=== PATIENT | female | born 1975 | race Caucasian/White ===

== ENCOUNTER 2020-05-27 09:22 | Observation (INO) ==
[2020-05-27] MEDS ORDERED: SODIUM CHLORIDE 0.9% 1000ML 1,000 ML IV ONE (09:47)
[2020-05-27] MEDS ORDERED: KETOROLAC TROMETHAMINE 15 MG/ML VIAL IV STA (09:47)
[2020-05-27 10:01] LABS: POC Urine Bilirubin Negative (Negative); POC Urine Blood 250 (Negative); POC Urine Glucose Normal (Normal); POC Urine Ketones Negative (Negative); POC Urine Leukocytes Trace (Negative); POC Urine Nitrite Negative (Negative); POC Urine Protein 2+ (Negative); POC Urine Urobilinogen Normal (Normal)
--- NOTE | 2020-05-27 10:06 | Emergency Department Note ---
History of Present Illness General Chief complaint: Abdominal Pain Stated complaint: LOWER ABD PAIN Time Seen by Provider: 05/27/20 09:30 Source: patient Mode of arrival: ambulatory Limitations: no limitations History of Present Illness Maximum Pain Intensity: 5 This patient is a 45-year-old female who presents to the emergency department for evaluation of abdominal pain. Patient states that this morning, she dev eloped a sudden onset of left lower quadrant abdominal pain as well as urinary urgency. She was only able to urinate a small amount at a time. She became nauseous, hot and sweaty. She states that the pain is slightly better at this time and she was able to fully urinate after arriving here. She rates his pain a 5/10. She denies any history of similar symptoms. She denies any vomiting or fever. Patient additionally reports that she has had on and off right upper quadrant pain for the past 2 weeks. She states this started after eating a burger. Pain has been exacerbated by eating. Pain is located in the right upper abdomen and radiates into the back. She reports only a minimal twinge of pain in this area at this time. Home Medications Medication Instructions Recorded Confirmed Type levonorgestrel-ethinyl estrad 1 tab PO HS 05/27/20 05/27/20 History [[place] 28] Allergies Allergy/AdvReac Type Severity Reaction Status Date / Time No Known Allergies Allergy Unverified 05/27/20 10:41 Past Med/Surg History Medical History No significant past medical history Surgical History History of adenoidectomy History of section Hx of tonsillectomy Status post right breast lumpectomy Family History Mother Stroke Social History Smoking Status: Former smoker Do You Dip or Chew Tobacco: No; Hx Alcohol Use: Yes Hx Substance Use: No Preferred Language: Yi Communication Ability: Effective Stock Patch Sawyer Required: No Beliefs That Will Affect Care: None Current Living Situation: Spouse Feels Safe at Home: Yes Assistive Devices: Contacts Review of Systems A total of 10 systems reviewed and were otherwise negative Physical Exam Vital Signs Vital Signs - 24 hr 05/27/20 09:27 05/27/20 10:02 05/27/20 11:10 Temperature 37 C Temperature Source Oral Pulse Rate 111 H 119 H Pulse Rate [Apical] 119 H 119 H Pulse Rhythm Regular Regular Pulse Rhythm [Apical] Regular Pulse Strength Normal Pulse Strength [Apical] Normal Respiratory Rate 18 16 18 Respiratory Effort / Characteristics Non-Labored Spontaneous Non-Labored Spontaneous Accessory Muscle Use Respiratory Depth Normal Normal Respiratory Pattern Regular Regular Blood Pressure 174/129 H Blood Pressure [Right Arm] 152/107 H 181/137 H Blood Pressure Mean 144 Blood Pressure Mean [Right Arm] 122 151 Blood Pressure Position Sitting Blood Pressure Position [Right Arm] Semi-fowlers Pulse Oximetry 98 99 96 Oxygen Delivery Method Room Air Room Air Room Air Sepsis Recent Fever Within 48 Hours No Sepsis New/Unexplained Change in Mental Status N/A Sepsis Action Taken by Nursing No Action Required 05/27/20 11:42 05/27/20 13:00 05/27/20 14:40 Temperature Temperature Source Pulse Rate Pulse Rate [Apical] 105 H 114 H 108 H Pulse Rhythm Pulse Rhythm [Apical] Regular Regular Regular Pulse Strength Pulse Strength [Apical] Normal Normal Normal Respiratory Rate 18 17 18 Respiratory Effort / Characteristics Non-Labored Spontaneous Non-Labored Non-Labored Respiratory Depth Normal Normal Normal Respiratory Pattern Regular Regular Blood Pressure Blood Pressure [Right Arm] 149/109 H 150/116 H 155/103 H Blood Pressure Mean Blood Pressure Mean [Right Arm] 122 127 120 Blood Pressure Position Blood Pressure Position [Right Arm] Semi-fowlers Sitting Sitting Pulse Oximetry 99 98 99 Oxygen Delivery Method Room Air Room Air Room Air Sepsis Recent Fever Within 48 Hours Sepsis New/Unexplained Change in Mental Status Sepsis Action Taken by Nursing 05/27/20 16:26 05/27/20 17:57 05/27/20 18:40 Temperature Temperature Source Pulse Rate Pulse Rate [Apical] 108 H 104 H 108 H Pulse Rhythm Pulse Rhythm [Apical] Pulse Strength Pulse Strength [Apical] Respiratory Rate 24 18 17 Respiratory Effort / Characteristics Non-Labored Spontaneous Non-Labored Spontaneous Respiratory Depth Normal Normal Respiratory Pattern Regular Regular Blood Pressure Blood Pressure [Right Arm] 143/104 H 147/110 H 139/107 H Blood Pressure Mean Blood Pressure Mean [Right Arm] 117 122 117 Blood Pressure Position Blood Pressure Position [Right Arm] Pulse Oximetry 99 98 96 Oxygen Delivery Method Room Air Room Air Room Air Sepsis Recent Fever Within 48 Hours Sepsis New/Unexplained Change in Mental Status Sepsis Action Taken by Nursing 05/27/20 20:20 05/27/20 21:07 Temperature Temperature Source Pulse Rate 102 H Pulse Rate [Apical] 106 H Pulse Rhythm Pulse Rhythm [Apical] Pulse Strength Pulse Strength [Apical] Respiratory Rate 18 18 Respiratory Effort / Characteristics Respiratory Depth Respiratory Pattern Blood Pressure 130/99 Blood Pressure [Right Arm] 152/109 H Blood Pressure Mean Blood Pressure Mean [Right Arm] 123 Blood Pressure Position Blood Pressure Position [Right Arm] Pulse Oximetry 97 99 Oxygen Delivery Method Room Air Room Air Sepsis Recent Fever Within 48 Hours Sepsis New/Unexplained Change in Mental Status Sepsis Action Taken by Nursing VITALS: Vitals are noted on the nurse's note and reviewed by myself. GENERAL: This is a 45-year-old female, in no acute distress, well-developed well-nourished. SKIN: The skin was without rashes. EARS: External auditory canals clear, tympanic membranes pearly grant without erythema or effusion bilaterally. EYES: Pupils equal round and reactive to light and accommodation. No scleral icterus. MOUTH: Mucous membranes moist. Tonsils are not enlarged. Pharynx without erythema or exudate. NECK: Supple without nuchal rigidity. No lymphadenopathy. HEART: Regular rate and rhythm without murmurs gallops or rubs. LUNGS: Clear to auscultation bilaterally without wheezes, rales or rhonchi. ABDOMEN: Positive bowel sounds x 4. Soft, moderate tenderness to palpation in the left lower quadrant, mild tenderness in the left upper quadrant. Minimal tenderness in the right upper quadrant. No guarding or rebound tenderness. NEURO: Patient was alert and oriented to person place and time. Course Consultations Consultation #1: Christina Nowak PA-C - general surgery Administered Medications Potassium Chloride 10 meq/ (Sodium Chloride) 1,005 mls @ 100 mls/hr IV .Q10H3M IRVIN Stop: 06/27/20 03:29 Last Admin: 05/28/20 04:41 Dose: 100 mls/hr Documented by: [id number] Cefoxitin Sodium 2,000 mg/ (Dextrose) 60 mls @ 100 mls/hr IV Q6H IRVIN Stop: 06/07/20 03:59 Last Infusion: 05/28/20 04:41 Dose: 0 mls/hr Documented by: [id number] Admin: 05/28/20 04:01 Dose: 100 mls/hr Documented by: [id number] Oxycodone/Acetaminophen (Oxycodone/Acetaminophen 5mg/325mg Tab) 1 tab PO Q4H PRN PRN Reason: Pain Stop: 06/11/20 02:49 Last Admin: 05/28/20 05:16 Dose: 1 tab Documented by: [id number] Discontinued Medications Bupivacaine HCl (Bupivacaine 0.5 % 5 Mg/1 Ml Mpf 30ml Vial) 20 ml INJ ONCE ONE Stop: 05/28/20 00:59 Last Admin: 05/28/20 01:00 Dose: 20 ml Documented by: [id number] Cefazolin Sodium (Cefazolin 250 Mg/Ml 1 Gm Vial) 1,000 mg IR ONCE ONE; Protocol Stop: 05/28/20 00:49 Last Admin: 05/28/20 00:49 Dose: 1,000 mg Documented by: [id number] Fentanyl Citrate (Fentanyl Citrate 100 Mcg/2 Ml Vial) 25 mcg IV Q5M PRN PRN Reason: PACU Use Only-Pain Stop: 05/28/20 04:53 Last Admin: 05/28/20 01:45 Dose: 25 mcg Documented by: [id number] Sodium Chloride (Nss 1000ml) 1,000 mls @ 999 mls/hr IV .Q1H1M ONE Stop: 05/27/20 10:47 Last Infusion: 05/27/20 11:15 Dose: 0 mls/hr Documented by: [id number] Admin: 05/27/20 10:12 Dose: 999 mls/hr Documented by: [id number] Ceftriaxone Sodium (Rocephin) 2,000 mg in 70 mls @ 140 mls/hr IV NOW STA Stop: 05/27/20 12:33 Last Infusion: 05/27/20 12:45 Dose: 0 mls/hr Documented by: [id number] Admin: 05/27/20 12:17 Dose: 140 mls/hr Documented by: [id number] Metronidazole (Flagyl) 500 mg in 100 mls @ 100 mls/hr IV NOW STA Stop: 05/27/20 13:03 Last Infusion: 05/27/20 13:54 Dose: 0 mls/hr Documented by: [id number] Admin: 05/27/20 12:50 Dose: 100 mls/hr Documented by: [id number] Cefoxitin Sodium 2,000 mg/ (Dextrose) 60 mls @ 100 mls/hr IV ONCE ONE Stop: 05/28/20 01:08 Last Infusion: 05/28/20 03:53 Dose: 0 mls/hr Documented by: [id number] Admin: 05/27/20 22:20 Dose: 100 mls/hr Documented by: [id number] Heparin Sodium (Porcine) 5,000 (units/ Syringe) 1 mls @ 1 mls/min IV ONCE ONE Stop: 05/28/20 00:52 Last Admin: 05/28/20 00:53 Dose: 1 mls/min Documented by: [id number] Ketorolac Tromethamine (Ketorolac Tromethamine 15 Mg/Ml Vial) 15 mg IV NOW STA Stop: 05/27/20 09:48 Last Admin: 05/27/20 10:12 Dose: 15 mg Documented by: [id number] Miscellaneous ( Floseal Hemostatic Matrix 10ml) 10 ml TOP ONCE ONE Stop: 05/28/20 00:48 Last Admin: 05/28/20 03:53 Dose: Not Given Documented by: [id number] Medical Decision Making Differential Diagnosis Differential diagnosis includes appendicitis, diverticulitis, bowel obstruction, inflammatory bowel disease, renal colic, PUD, biliary pathology, pancreatitis, mesenteric ischemia, aortic pathology, infection, genitourinary, UTI, perforated viscus, among others. Home Medications Current Medication List: was personally reviewed by me Laboratory Data Attestation: I reviewed the patient's lab results. Result diagrams: 05/27/20 10:01 05/27/20 10:01 Lab Results 05/27/20 05/27/20 05/27/20 Range/Units 09:47 09:47 09:47 WBC (4.8-10.8) K/uL RBC (4.2-5.4) M/uL Hgb (12.0-16.0) g/dL Hct (37-47) % MCV (80-100) fL MCH (25-34) pg MCHC (32-36) g/dL RDW Std Deviation (36.4-46.3) fL RDW Coeff of [place] (11.5-14.5) % Plt Count (130-400) K/uL MPV (7.4-10.4) fL Immature Gran % (Auto) % Neut % (Auto) % Lymph % (Auto) % [place] % (Auto) % Eos % (Auto) % Baso % (Auto) % Neut # (Auto) (1.4-6.5) K/uL Lymph # (Auto) (1.2-3.4) K/uL [place] # (Auto) (0.11-0.59) K/uL Eos # (Auto) (0-0.5) K/uL Baso # (Auto) (0-0.2) K/uL Immature Gran # (Auto) (0.00-0.02) K/uL Sodium (136-145) mmol/L Potassium (3.5-5.1) mmol/L Chloride (98-107) mmol/L Carbon Dioxide (21-32) mmol/L Anion Gap (3-11) BUN (7-18) mg/dl Creatinine (0.6-1.2) mg/dl Est Cr Clr Drug Dosing ml/min Est GFR ( Amer) Est GFR (Non-Af Amer) BUN/Creatinine Ratio (10-20) Glucose (70-99) mg/dl Calcium (8.5-10.1) mg/dl Total Bilirubin (0.2-1) mg/dl AST (15-37) U/L ALT (12-78) U/L Alkaline Phosphatase (45-117) U/L Total Protein (6.4-8.2) gm/dl Albumin (3.4-5.0) gm/dl Globulin (2.5-4.0) gm/dl Albumin/Globulin Ratio (0.9-2) Lipase (73-393) U/L Urine Color Dark Yellow Urine Appearance Cloudy A (Clear) Urine pH 5.0 (4.5-7.5) POC Urine pH Not Reportable Ur Specific [place] 1.022 (1.000-1.030) Urine Protein 1+ H (Negative) POC Urine Protein 2+ H (Negative) Urine Glucose (UA) Negative (Negative) POC Ur Glucose (UA) Normal (Normal) Urine Ketones Trace H (Negative) POC Urine Ketones Negative (Negative) Urine Blood 3+ H (Negative) POC Urine Blood 250 H (Negative) Urine Nitrite Negative (Negative) POC Urine Nitrite Negative (Negative) Urine Bilirubin Negative (Negative) POC Urine Bilirubin Negative (Negative) Urine Urobilinogen Negative (Negative) POC Urine Urobilinogen Normal (Normal) Ur Leukocyte Esterase 2+ H (Negative) POC U Leukocyte Esteras Trace H (Negative) Urine WBC (Auto) 10-30 H (0-5) /hpf Urine RBC (Auto) >30 H (0-4) /hpf U Hyaline Cast (Auto) 1-5 (0-5) /lpf U Epithel Cells (Auto) >30 H (0-5) /lpf Urine Bacteria (Auto) Negative (Negative) Urine Test Negative (Negative) COVID-19 Eval Order SARS-CoV-2, RNA, NAAT (NEGATIVE) 05/27/20 05/27/20 05/27/20 Range/Units 10:01 10:01 15:38 WBC 6.42 (4.8-10.8) K/uL RBC 4.36 (4.2-5.4) M/uL Hgb 14.4 (12.0-16.0) g/dL Hct 40.9 (37-47) % MCV 93.8 (80-100) fL MCH 33.0 (25-34) pg MCHC 35.2 (32-36) g/dL RDW Std Deviation 42.7 (36.4-46.3) fL RDW Coeff of [place] 12.4 (11.5-14.5) % Plt Count 301 (130-400) K/uL MPV 10.0 (7.4-10.4) fL Immature Gran % (Auto) 0.2 % Neut % (Auto) 71.4 % Lymph % (Auto) 18.7 % [place] % (Auto) 8.3 % Eos % (Auto) 1.2 % Baso % (Auto) 0.2 % Neut # (Auto) 4.59 (1.4-6.5) K/uL Lymph # (Auto) 1.20 (1.2-3.4) K/uL [place] # (Auto) 0.53 (0.11-0.59) K/uL Eos # (Auto) 0.08 (0-0.5) K/uL Baso # (Auto) 0.01 (0-0.2) K/uL Immature Gran # (Auto) 0.01 (0.00-0.02) K/uL Sodium 139 (136-145) mmol/L Potassium 3.7 (3.5-5.1) mmol/L Chloride 108 H (98-107) mmol/L Carbon Dioxide 24 (21-32) mmol/L Anion Gap 7.0 (3-11) BUN 15 (7-18) mg/dl Creatinine 0.79 (0.6-1.2) mg/dl Est Cr Clr Drug Dosing 131.1 ml/min Est GFR ( Amer) 105.5 Est GFR (Non-Af Amer) 91.0 BUN/Creatinine Ratio 19.4 (10-20) Glucose 101 H (70-99) mg/dl Calcium 9.0 (8.5-10.1) mg/dl Total Bilirubin 0.6 (0.2-1) mg/dl AST 14 L (15-37) U/L ALT 28 (12-78) U/L Alkaline Phosphatase 94 (45-117) U/L Total Protein 7.9 (6.4-8.2) gm/dl Albumin 3.9 (3.4-5.0) gm/dl Globulin 4.0 (2.5-4.0) gm/dl Albumin/Globulin Ratio 1.0 (0.9-2) Lipase 89 (73-393) U/L Urine Color Urine Appearance (Clear) Urine pH (4.5-7.5) POC Urine pH Ur Specific [place] (1.000-1.030) Urine Protein (Negative) POC Urine Protein (Negative) Urine Glucose (UA) (Negative) POC Ur Glucose (UA) (Normal) Urine Ketones (Negative) POC Urine Ketones (Negative) Urine Blood (Negative) POC Urine Blood (Negative) Urine Nitrite (Negative) POC Urine Nitrite (Negative) Urine Bilirubin (Negative) POC Urine Bilirubin (Negative) Urine Urobilinogen (Negative) POC Urine Urobilinogen (Normal) Ur Leukocyte Esterase (Negative) POC U Leukocyte Esteras (Negative) Urine WBC (Auto) (0-5) /hpf Urine RBC (Auto) (0-4) /hpf U Hyaline Cast (Auto) (0-5) /lpf U Epithel Cells (Auto) (0-5) /lpf Urine Bacteria (Auto) (Negative) Urine Test (Negative) COVID-19 Eval [facility] [place] SARS-CoV-2, RNA, NAAT (NEGATIVE) 05/27/20 Range/Units 15:38 WBC (4.8-10.8) K/uL RBC (4.2-5.4) M/uL Hgb (12.0-16.0) g/dL Hct (37-47) % MCV (80-100) fL MCH (25-34) pg MCHC (32-36) g/dL RDW Std Deviation (36.4-46.3) fL RDW Coeff of Maril[place] (11.5-14.5) % Plt Count (130-400) K/uL MPV (7.4-10.4) fL Immature Gran % (Auto) % Neut % (Auto) % Lymph % (Auto) % [place] % (Auto) % Eos % (Auto) % Baso % (Auto) % Neut # (Auto) (1.4-6.5) K/uL Lymph # (Auto) (1.2-3.4) K/uL [place] # (Auto) (0.11-0.59) K/uL Eos # (Auto) (0-0.5) K/uL Baso # (Auto) (0-0.2) K/uL Immature Gran # (Auto) (0.00-0.02) K/uL Sodium (136-145) mmol/L Potassium (3.5-5.1) mmol/L Chloride (98-107) mmol/L Carbon Dioxide (21-32) mmol/L Anion Gap (3-11) BUN (7-18) mg/dl Creatinine (0.6-1.2) mg/dl Est Cr Clr Drug Dosing ml/min Est GFR ( Amer) Est GFR (Non-Af Amer) BUN/Creatinine Ratio (10-20) Glucose (70-99) mg/dl Calcium (8.5-10.1) mg/dl Total Bilirubin (0.2-1) mg/dl AST (15-37) U/L ALT (12-78) U/L Alkaline Phosphatase (45-117) U/L Total Protein (6.4-8.2) gm/dl Albumin (3.4-5.0) gm/dl Globulin (2.5-4.0) gm/dl Albumin/Globulin Ratio (0.9-2) Lipase (73-393) U/L Urine Color Urine Appearance (Clear) Urine pH (4.5-7.5) POC Urine pH Ur Specific [place] (1.000-1.030) Urine Protein (Negative) POC Urine Protein (Negative) Urine Glucose (UA) (Negative) POC Ur Glucose (UA) (Normal) Urine Ketones (Negative) POC Urine Ketones (Negative) Urine Blood (Negative) POC Urine Blood (Negative) Urine Nitrite (Negative) POC Urine Nitrite (Negative) Urine Bilirubin (Negative) POC Urine Bilirubin (Negative) Urine Urobilinogen (Negative) POC Urine Urobilinogen (Normal) Ur Leukocyte Esterase (Negative) POC U Leukocyte Esteras (Negative) Urine WBC (Auto) (0-5) /hpf Urine RBC (Auto) (0-4) /hpf U Hyaline Cast (Auto) (0-5) /lpf U Epithel Cells (Auto) (0-5) /lpf Urine Bacteria (Auto) (Negative) Urine Test (Negative) COVID-19 Eval Order SARS-CoV-2, RNA, NAAT NEGATIVE (NEGATIVE) Imaging Data Attestation: I personally reviewed and interpreted this imaging study as follows: Radiologist's Impression: CT SCAN OF THE ABDOMEN AND PELVIS WITHOUT IV CONTRAST FINDINGS: Lung bases: The heart is normal in size and without pericardial effusion. The lung bases are clear. Liver: The unenhanced liver is mildly enlarged measuring 18.8 cm in length. The liver demonstrates diffusely diminished attenuation consistent with mild steatosis. Fatty sparing is seen adjacent to gallbladder fossa. There is no intrahepatic biliary ductal dilatation. Gallbladder: There are large calcified gallstones, with a 2.7 cm gallstone in the region of the gallbladder neck. The gallbladder is distended. There is mild gallbladder wall thickening and pericholecystic inflammation. Findings are consi stent with acute cholecystitis. Spleen: Normal in size and attenuation. Pancreas: Unremarkable. Adrenal glands: Unremarkable. Kidneys: The unenhanced kidneys are normal in size and without hydronephrosis. There is a 3 mm nonobstructing calculus in the lower pole of the left kidney. No right renal calculi are identified and there is no ureteral stone. There is no evidence of contour deforming renal mass lesion. Abdominal vasculature: The abdominal aorta is normal in course and caliber. Bowel: There is no bowel obstruction. Scattered colonic diverticula are noted without CT evidence of acute diverticulitis. The appendix is well-visualized and normal. Peritoneum: There is no intraperitoneal free air or abdominal ascites. Lymphadenopathy: None. Pelvic viscera: The bladder, uterus, and adnexa are normal as visualized noting bilateral ovarian follicles. Skeletal structures: No lytic or blastic lesions are seen. IMPRESSION: 1. Cholelithiasis with acute cholecystitis. Surgical consultation is advised. 2. There is a small nonobstructing left renal calculus. 3. The liver is mildly enlarged and steatotic. 4. Additional findings as above. 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 Patient was placed on the ca rdiac monitor. Patient was noted to be in sinus tachycardia at an initial rate of 111 bpm. The patient is a 45-year-old female who presents today complaining of abdominal pain. Patient has been having right upper quadrant abdominal pain for the past 2 weeks. This morning, she had a sudden onset of left lower quadrant abdominal pain as well as some urinary symptoms. I suspect that this was due to a recently passed kidney stone, as patient does have an additional left renal calculus and has hematuria. The symptoms resolved during her stay. However, her CT also showed evidence of acute cholecystitis. Her labs reveal no leukocytosis, anemia or concerning electrolyte abnormalities. LFTs within normal limits. No elevation of the patient's lipase. She was tachycardic throughout her stay, although I suspect this is in part due to anxiety as she admits she is very anxious about her symptoms and possibly needing surgery. Patient was given IV fluids and Toradol. Patient given IV Rocephin and Flagyl in the ER. General surgery was consulted to evaluate the patient. Impression & Plan Acute cholecystitis, Hematuria, Left lower quadrant abdominal pain Discharge Plan Visit Data Chief Complaint: Abdominal Pain Stated Complaint: LOWER ABD PAIN ED Provider: Daryl Perez ED Midlevel Provider: Geri Ramirez Discharge Problem: Acute cholecystitis, Hematuria, Left lower quadrant abdominal pain Patient Disposition: Admitted As Inpatient Discharge Instructions Interventions: ED Discharge Assessment Last Done: 05/27/20 21:07 Discharge Problem: Hematuria Qualifiers: Hematuria type: unspecified type Qualified Code(s): R31.9 - Hematuria, unspecified
[2020-05-27 10:14] LABS: Appearance Urine Cloudy (Clear); Bacteria Urine Automated Negative (Negative); Bilirubin Urine Negative (Negative); Blood Urine 3+ (Negative); Color Urine Dark Yellow; Epithelial Cell Urine Auto >30 /lpf (0-5); Glucose Urine UA Negative (Negative); Ketones Urine Trace (Negative); Leukocyte Esterase Urine 2+ (Negative); Nitrite Urine Negative (Negative); Protein Urine 1+ (Negative); RBC Urine Automated >30 /hpf (0-4); Specific Gravity Urine 1.022 (1.000-1.030); Urobilinogen Urine Negative (Negative)
[2020-05-27 10:19] LABS: Basophils # (auto) 0.01 K/uL (0-0.2); Basophils % (auto) 0.2 %; Eosinophils # (auto) 0.08 K/uL (0-0.5); Eosinophils % (auto) 1.2 %; Hematocrit (blood only) 40.9 % (37-47); Hemoglobin 14.4 g/dL (12.0-16.0); Immature Granulocytes # (auto) 0.01 K/uL (0.00-0.02); Immature Granulocytes % (auto) 0.2 %; Lymphocytes % (auto) 18.7 %; Mean Corpuscular Hgb Conc 35.2 g/dL (32-36); Mean Corpuscular Volume 93.8 fL (80-100); Monocytes # (auto) 0.53 K/uL (0.11-0.59); Monocytes % (auto) 8.3 %; Neutrophils # (auto) 4.59 K/uL (1.4-6.5); Neutrophils % (auto) 71.4 %; Platelet Count 301 K/uL (130-400); RDW Coefficient of Variation 12.4 % (11.5-14.5); RDW Standard Deviation 42.7 fL (36.4-46.3); Red Blood Count 4.36 M/uL (4.2-5.4); White Blood Count 6.42 K/uL (4.8-10.8)
[2020-05-27 10:28] LABS: Pregnancy Test, Urine Negative (Negative)
[2020-05-27 10:36] LABS: Albumin Level 3.9 gm/dl (3.4-5.0); BUN Creatinine Ratio 19.4 (10-20); Creatinine Clr Calc Pharmacy 131.1 ml/min; Est GFR (African American) 105.5; Potassium 3.7 mmol/L (3.5-5.1)
[2020-05-27 10:39] LABS: Bilirubin,Total 0.6 mg/dl (0.2-1); Total Protein 7.9 gm/dl (6.4-8.2)
--- NOTE | 2020-05-27 10:50 | CT Scan Report ---
CT SCAN OF THE ABDOMEN AND PELVIS WITHOUT IV CONTRAST CLINICAL HISTORY: Left lower quadrant abdominal pain. Dysuria. Right upper quadrant abdominal pain. COMPARISON STUDY: No priors. TECHNIQUE: CT scan of the abdomen and pelvis is performed from the lung bases to the proximal femora. Images are reviewed in the axial, sagittal, and coronal planes. IV contrast was not administered for this examination. A dose lowering technique was utilized adhering to the principles of ALARA. The ex amination is degraded by large body habitus, and by streak artifact from the body wall abutting the C T gantry. CT DOSE: 2183.07 mGy.cm FINDINGS: Lung bases: The heart is normal in size and without pericardial effusion. The lung bases are clear. Liver: The unenhanced liver is mildly enlarged measuring 18.8 cm in length. The liver demonstrates di ffusely diminished attenuation consistent with mild steatosis. Fatty sparing is seen adjacent to gall bladder fossa. There is no intrahepatic biliary ductal dilatation. Gallbladder: There are large calcified gallstones, with a 2.7 cm gallstone in the region of the gallb ladder neck. The gallbladder is distended. There is mild gallbladder wall thickening and pericholecys tic inflammation. Findings are consistent with acute cholecystitis. Spleen: Normal in size and attenuation. Pancreas: Unremarkable. Adrenal glands: Unremarkable. Kidneys: The unenhanced kidneys are normal in size and without hydronephrosis. There is a 3 mm nonobs tructing calculus in the lower pole of the left kidney. No right renal calculi are identified and the re is no ureteral stone. There is no evidence of contour deforming renal mass lesion. Abdominal vasculature: The abdominal aorta is normal in course and caliber. Bowel: There is no bowel obstruction. Scattered colonic diverticula are noted without CT evidence of acute diverticulitis. The appendix is well-visualized and normal. Peritoneum: There is no intraperitoneal free air or abdominal ascites. Lymphadenopathy: None. Pelvic viscera: The bladder, uterus, and adnexa are normal as visualized noting bilateral ovarian fol licles. Skeletal structures: No lytic or blastic lesions are seen. IMPRESSION: 1. Cholelithiasis with acute cholecystitis. Surgical consultation is advised. 2. There is a small nonobstructing left renal calculus. 3. The liver is mildly enlarged and steatotic. 4. Additional findings as above. ACT 112: Negative or not required by law. Electronically signed by: Froilan Hoover M.D. 05/27/2020 10:49 AM
[2020-05-27] MEDS ORDERED: metroNIDAZOLE 500 MG/100 ML BAG IV STA (12:04)
[2020-05-27] MEDS ORDERED: cefTRIAXone SODIUM 2,000 MG/70 ML BAG IV STA (12:04)
--- NOTE | 2020-05-27 13:54 | Electrocardiogram Report ---
Test Reason : Blood Pressure : / mmHG Vent. Rate : 114 BPM Atrial Rate : 114 BPM P-R Int : 130 ms QRS Dur : 074 ms QT Int : 330 ms P-R-T Axes : 039 007 -05 degrees QTc Int : 454 ms Sinus tachycardia Normal ECG No previous ECGs available Confirmed by Rahul Sosa ([id number]) on 05/27/2020 1:54:04 PM Referred By: REFERRED SELF Confirmed By:Rahul Sosa
--- NOTE | 2020-05-27 16:03 | History & Physical Report ---
Date of Service May 27, 2020 Assessment & Plan (1) Acute cholecystitis: 45-year-old female who presented to the emergency room with left lower quadrant abdominal pain and urinary urgency found to have right upper quadrant abdominal pain for the past [address] scan of abdomen pelvis showing distended gallbladder with large 2.7 centimeters stone in the neck of the gallbladder with gallbladder wall thickening and surrounding inflammation consistent with acute cholecystitis. Labs showed no leukocytosis, afebrile. Abdomen is soft, obese, tender in the right upper quadrant with positive Shaffer sign. Plan: Discussed CT scan findings with patient and examination findings consistent with acute calculus cholecystitis. Discussed laparoscopic cholecystectomy possible open. Discussed risks and recovery with patient. Depending on OR availability patient may go to the OR this evening or tomorrow morning. Preop Covid testing This OR tomorrow patient will be admitted under observation to [facility] and started on IV antibiotics and pain control. Diet n.p.o. (2) Left lower quadrant abdominal pain: Patient presented to the ED with this left lower quadrant pain however this resolved after she was able to urinate. Likely passed a small kidney stone. (3) Hematuria: Likely due to passing a small kidney stone. Dr. Hodgson has seen and examined patient agrees with above please see ad dendum for further recommendations and plan. History of Present Illness Chief Complaint: LLQ abdominal pain RUQ abdominal pain Primary Care Provider: [facility] PCP Lily is a 45-year-old female who presented to the emergency room this morning with complaint of left lower quadrant abdominal pain that started this morning suddenly. Described the pain as sharp and stabbing in the left lower quadrant with urinary urgency but was unable to urinate. She presented to the emergency room and was able to urinate and then the pain in the left lower quadrant subsided. She also stated that she has been having this right upper quadrant abdominal pain. Had an episode about 1 and half weeks ago after eating a burger in which she had sharp right upper abdominal pain with radiation to her back for a few hours and then resolved she had associated nausea but no vomiting. She then had another episode this past Tuesday after eating but was not as bad as the first episode. Some mild gnawing pain that has been persistent in the right upper quadrant. Denies of any fevers, chills, chest pain, shortness of breath, diarrhea, blood in stools, black tarry stools, jaundice, generalized itching, acholic stools. She was unaware that she had gallstones. She states her mother had gallstones and had her gallbladder removed around the same age. Denies of any history of blood clots or bleeding disorders. No blood thinning agents. ER work-up included labs which showed no leukocytosis. CMP with LFTs and total bilirubin within normal limits. CT scan of abdomen and pelvis without contrast showing distended gallbladder with a large two-point centimeter stone in the neck of the gallbladder with some mild gallbladder wall thickening and surrounding inflammation consistent with acute cholecystitis. Allergies Allergy/AdvReac Type Severity Reaction Status Date / Time No Known Allergies Allergy Unverified 05/27/20 10:41 Home Medications Medication Instructions Recorded Confirmed Type levonorgestrel-ethinyl estrad 1 tab PO HS 05/27/20 05/27/20 History [[place] 28] Past Med/Surg History Medical History (Updated 05/27/20 @ 15:26 by Geri Ramirez PA-C) No significant past medical history Surgical History (Updated 05/27/20 @ 16:04 by Christina Nowak PA-C) History of adenoidectomy History of section Hx of tonsillectomy Status post right breast lumpectomy Family History (Updated 05/27/20 @ 16:05 by Christina Nowak PA-C) Mother Stroke Social History Smoking Status: Never smoker Feels Safe at Home: Yes Review of Systems Review of Systems: All systems reviewed & are unremarkable except as noted in HPI & below Physical Exam Constitutional: WD/WN, vitals as above + morbidly obese Respiratory: normal respiratory effort, lungs clear to auscultation Cardiovascular: Rate/Rhythm: regular rhythm and + tachycardic Heart Sounds: normal S1 and normal S2; no gallop, no murmur and no cardiac rub Gastrointestinal (Abdomen): Inspection/Auscultation: abdomen normal to inspection and normal bowel sounds; abdomen not distended Percussio n/Palpation: + abdomen tender (Right upper quadrant), + guarding (Right upper quadrant, positive Shaffer sign) and abdomen soft; abdomen not rigid Skin: no rashes, warm and dry Psychiatric: A+Ox3, euthymic affect Results & Data Results & Data ([facility]) Vital Signs (Past 12 Hours) Vital Signs Temp Pulse Pulse Resp BP BP Pulse Ox 05/27/20 14:40 108 H 18 155/103 H 99 05/27/20 13:00 114 H 17 150/116 H 98 05/27/20 11:42 105 H 18 149/109 H 99 05/27/20 11:10 119 H 18 181/137 H 96 05/27/20 10:02 119 H 119 H 16 152/107 H 99 05/27/20 09:27 37 C 111 H 18 174/129 H 98 Laboratory Results 05/27/20 05/27/20 05/27/20 Range/Units 15:38 15:38 10:01 WBC (4.8-10.8) K/uL RBC (4.2-5.4) M/uL Hgb (12.0-16.0) g/dL Hct (37-47) % MCV (80-100) fL MCH (25-34) pg MCHC (32-36) g/dL RDW Std Deviation (36.4-46.3) fL RDW Coeff of Mariluz (11.5-14.5) % Plt Count (130-400) K/uL MPV (7.4-10.4) fL Immature Gran % (Auto) % Neut % (Auto) % Lymph % (Auto) % [place] % (Auto) % Eos % (Auto) % Baso % (Auto) % Neut # (Auto) (1.4-6.5) K/uL Lymph # (Auto) (1.2-3.4) K/uL [place] # (Auto) (0.11-0.59) K/uL Eos # (Auto) (0-0.5) K/uL Baso # (Auto) (0-0.2) K/uL Immature Gran # (Auto) (0.00-0.02) K/uL Sodium 139 (136-145) mmol/L Potassium 3.7 (3.5-5.1) mmol/L Chloride 108 H (98-107) mmol/L Carbon Dioxide 24 (21-32) mmol/L Anion Gap 7.0 (3-11) BUN 15 (7-18) mg/dl Creatinine 0.79 (0.6-1.2) mg/dl Est Cr Clr Drug Dosing 131.1 ml/min Est GFR ( Amer) 105.5 Est GFR (Non-Af Amer) 91.0 BUN/Creatinine Ratio 19.4 (10-20) Glucose 101 H (70-99) mg/dl Calcium 9.0 (8.5-10.1) mg/dl Total Bilirubin 0.6 (0.2-1) mg/dl AST 14 L (15-37) U/L ALT 28 (12-78) U/L Alkaline Phosphatase 94 (45-117) U/L Total Protein 7.9 (6.4-8.2) gm/dl Albumin 3.9 (3.4-5.0) gm/dl Globulin 4.0 (2.5-4.0) gm/dl Albumin/Globulin Ratio 1.0 (0.9-2) Lipase 89 (73-393) U/L Urine Color Urine Appearance (Clear) Urine pH (4.5-7.5) POC Urine pH Ur Specific [place] (1.000-1.030) Urine Protein (Negative) POC Urine Protein (Negative) Urine Glucose (UA) (Negative) POC Ur Glucose (UA) (Normal) Urine Ketones (Negative) POC Urine Ketones (Negative) Urine Blood (Negative) POC Urine Blood (Negative) Urine Nitrite (Negative) POC Urine Nitrite (Negative) Urine Bilirubin (Negative) POC Urine Bilirubin (Negative) Urine Urobilinogen (Negative) POC Urine Urobilinogen (Normal) Ur Leukocyte Esterase (Negative) POC U Leukocyte Esteras (Negative) Urine WBC (Auto) (0-5) /hpf Urine RBC (Auto) (0-4) /hpf U Hyaline Cast (Auto) (0-5) /lpf U Epithel Cells (Auto) (0-5) /lpf Urine Bacteria (Auto) (Negative) Urine Test (Negative) COVID-19 Eval Order Covid19 IDNow [facility] SARS-CoV-2, RNA, NAAT Pending 05/27/20 05/27/20 05/27/20 Range/Units 10:01 09:47 09:47 WBC 6.42 (4.8-10.8) K/uL RBC 4.36 (4.2-5.4) M/uL Hgb 14.4 (12.0-16.0) g/dL Hct 40.9 (37-47) % MCV 93.8 (80-100) fL MCH 33.0 (25-34) pg MCHC 35.2 (32-36) g/dL RDW Std Deviation 42.7 (36.4-46.3) fL RDW Coeff of Mariluz 12.4 (11.5-14.5) % Plt Count 301 (130-400) K/uL MPV 10.0 (7.4-10.4) fL Immature Gran % (Auto) 0.2 % Neut % (Auto) 71.4 % Lymph % (Auto) 18.7 % [place] % (Auto) 8.3 % Eos % (Auto) 1.2 % Baso % (Auto) 0.2 % Neut # (Auto) 4.59 (1.4-6.5) K/uL Lymph # (Auto) 1.20 (1.2-3.4) K/uL [place] # (Auto) 0.53 (0.11-0.59) K/uL Eos # (Auto) 0.08 (0-0.5) K/uL Baso # (Auto) 0.01 (0-0.2) K/uL Immature Gran # (Auto) 0.01 (0.00-0.02) K/uL Sodium (136-145) mmol/L Potassium (3.5-5.1) mmol/L Chloride (98-107) mmol/L Carbon Dioxide (21-32) mmol/L Anion Gap (3-11) BUN (7-18) mg/dl Creatinine (0.6-1.2) mg/dl Est Cr Clr Drug Dosing ml/min Est GFR ( Amer) Est GFR (Non-Af Amer) BUN/Creatinine Ratio (10-20) Glucose (70-99) mg/dl Calcium (8.5-10.1) mg/dl Total Bilirubin (0.2-1) mg/dl AST (15-37) U/L ALT (12-78) U/L Alkaline Phosphatase (45-117) U/L Total Protein (6.4-8.2) gm/dl Albumin (3.4-5.0) gm/dl Globulin (2.5-4.0) gm/dl Albumin/Globulin Ratio (0.9-2) Lipase (73-393) U/L Urine Color Urine Appearance (Clear) Urine pH (4.5-7.5) POC Urine pH Not Reportable Ur Specific [place] (1.000-1.030) Urine Protein (Negative) POC Urine Protein 2+ H (Negative) Urine Glucose (UA) (Negative) POC Ur Glucose (UA) Normal (Normal) Urine Ketones (Negative) POC Urine Ketones Negative (Negative) Urine Blood (Negative) POC Urine Blood 250 H (Negative) Urine Nitrite (Negative) POC Urine Nitrite Negative (Negative) Urine Bilirubin (Negative) POC Urine Bilirubin Negative (Negative) Urine Urobilinogen (Negative) POC Urine Urobilinogen Normal (Normal) Ur Leukocyte Esterase (Negative) POC U Leukocyte Esteras Trace H (Negative) Urine WBC (Auto) (0-5) /hpf Urine RBC (Auto) (0-4) /hpf U Hyaline Cast (Auto) (0-5) /lpf U Epithel Cells (Auto) (0-5) /lpf Urine Bacteria (Auto) (Negative) Urine Test Negative (Negative) COVID-19 Eval Order SARS-CoV-2, RNA, NAAT 05/27/20 Range/Units 09:47 WBC (4.8-10.8) K/uL RBC (4.2-5.4) M/uL Hgb (12.0-16.0) g/dL Hct (37-47) % MCV (80-100) fL MCH (25-34) pg MCHC (32-36) g/dL RDW Std Deviation (36.4-46.3) fL RDW Coeff of Mariluz (11.5-14.5) % Plt Count (130-400) K/uL MPV (7.4-10.4) fL Immature Gran % (Auto) % Neut % (Auto) % Lymph % (Auto) % [place] % (Auto) % Eos % (Auto) % Baso % (Auto) % Neut # (Auto) (1.4-6.5) K/uL Lymph # (Auto) (1.2-3.4) K/uL [place] # (Auto) (0.11-0.59) K/uL Eos # (Auto) (0-0.5) K/uL Baso # (Auto) (0-0.2) K/uL Immature Gran # (Auto) (0.00-0.02) K/uL Sodium (136-145) mmol/L Potassium (3.5-5.1) mmol/L Chloride (98-107) mmol/L Carbon Dioxide (21-32) mmol/L Anion Gap (3-11) BUN (7-18) mg/dl Creatinine (0.6-1.2) mg/dl Est Cr Clr Drug Dosing ml/min Est GFR ( Amer) Est GFR (Non-Af Amer) BUN/Creatinine Ratio (10-20) Glucose (70-99) mg/dl Calcium (8.5-10.1) mg/dl Total Bilirubin (0.2-1) mg/dl AST (15-37) U/L ALT (12-78) U/L Alkaline Phosphatase (45-117) U/L Total Protein (6.4-8.2) gm/dl Albumin (3.4-5.0) gm/dl Globulin (2.5-4.0) gm/dl Albumin/Globulin Ratio (0.9-2) Lipase (73-393) U/L Urine Color Dark Yellow Urine Appearance Cloudy A (Clear) Urine pH 5.0 (4.5-7.5) POC Urine pH Ur Specific [place] 1.022 (1.000-1.030) Urine Protein 1+ H (Negative) POC Urine Protein (Negative) Urine Glucose (UA) Negative (Negative) POC Ur Glucose (UA) (Normal) Urine Ketones Trace H (Negative) POC Urine Ketones (Negative) Urine Blood 3+ H (Negative) POC Urine Blood (Negative) Urine Nitrite Negative (Negative) POC Urine Nitrite (Negative) Urine Bilirubin Negative (Negative) POC Urine Bilirubin (Negative) Urine Urobilinogen Negative (Negative) POC Urine Urobilinogen (Normal) Ur Leukocyte Esterase 2+ H (Negative) POC U Leukocyte Esteras (Negative) Urine WBC (Auto) 10-30 H (0-5) /hpf Urine RBC (Auto) >30 H (0-4) /hpf U Hyaline Cast (Auto) 1-5 (0-5) /lpf U Epithel Cells (Auto) >30 H (0-5) /lpf Urine Bacteria (Auto) Negative (Negative) Urine Test (Negative) COVID-19 Eval Order SARS-CoV-2, RNA, NAAT Diagnostic Findings CT SCAN OF THE ABDOMEN AND PELVIS WITHOUT IV CONTRAST CLINICAL HISTORY: Left lower quadrant abdominal pain. Dysuria. Right upper quadrant abdominal pain. COMPARISON STUDY: No priors. TECHNIQUE: CT scan of the abdomen and pelvis is performed from the lung bases to the proximal femora. Images are reviewed in the axial, sagittal, and coronal planes. IV contrast was not administered for this examination. A dose lowering technique was utilized adhering to the principles of ALARA. The examination is degraded by large body habitus, and by streak artifact from the body wall abutting the CT gantry. CT DOSE: 2183.07 mGy.cm FINDINGS: Lung bases: The heart is normal in size and without pericardial effusion. The lung bases are clear. Liver: The unenhanced liver is mildly enlarged measuring 18.8 cm in length. The liver demonstrates diffusely diminished attenuation consistent with mild steatosis. Fatty sparing is seen adjacent to gallbladder fossa. There is no intrahepatic biliary ductal dilatation. Gallbladder: There are large calcified gallstones, with a 2.7 cm gallstone in the region of the gallbladder neck. The gallbladder is distended. There is mild gallbladder wall thickening and pericholecystic inflammation. Findings are consistent with acute cholecystitis. Spleen: Normal in size and attenuation. Pancreas: Unremarkable. Adrenal glands: Unremarkable. Kidneys: The unenhanced kidneys are normal in size and without hydronephrosis. There is a 3 mm nonobstructing calculus in the lower pole of the left kidney. No right renal calculi are identified and there is no ureteral stone. There is no evidence of contour deforming renal mass lesion. Abdominal vasculature: The abdominal aorta is normal in course and caliber. Bowel: There is no bowel obstruction. Scattered colonic diverticula are noted without CT evidence of acute diverticulitis. The appendix is well-visualized and normal. Peritoneum: There is no intraperitoneal free air or abdominal ascites. Lymphadenopathy: None. Pelvic viscera: The bladder, uterus, and adnexa are normal as visualized noting bilateral ovarian follicles. Skeletal structures: No lytic or blastic lesions are seen. IMPRESSION: 1. Cholelithiasis with acute cholecystitis. Surgical consultation is advised. 2. There is a small nonobstructing left renal calculus. 3. The liver is mildly enlarged and steatotic. 4. Additional findings as above. Code Status & VTE Plan VTE Prophylaxis Plan VTE Prophylaxis will be ordered: Yes Supervising Physician Co-Signing Physician Notes I interviewed and examined this patient I agree with the above note. Her CAT scan shows a dilated appendix with cholelithiasis and some evidence of acute cholecystitis. Her right upper quadrant is tender. I recommended laparoscopic cholecystectomy. I explained the procedure and the possible need to convert to an open procedure. I explained some of the possible complications and answered her questions. She has signed a consent form. (1) Hematuria Hematuria type: unspecified type Qualified Code(s): R31.9 - Hematuria, unspecified
[2020-05-27] MEDS ORDERED: ONDANSETRON INJ 2 MG/ML 2 ML VIAL IV PRN (20:53)
[2020-05-27] MEDS ORDERED: ePHEDrine sulfate 50 MG/ML AMP IV PRN (20:53)
[2020-05-27] MEDS ORDERED: ATROPINE SULFATE 0.1 MG/ML 10ML SYR IV PRN (20:53)
[2020-05-27] MEDS ORDERED: fentaNYL citrate 100 MCG/2 ML VIAL IV PRN (20:53)
[2020-05-27] MEDS ORDERED: HYDROmorphone INJ 1 MG/ML SYRINGE IV PRN (20:53)
--- NOTE | 2020-05-27 20:55 | Anesthesiology Consultation ---
Date of Service May 27, 2020 Assessment & Plan (1) Encounter for pre-operative examination: Chart Review Chart Review: Acceptable Risk for Surgery and Patient NOT seen in Pre Admission Testing Consults Requested none History Surgery Operation Date: 05/27/20 13:40 Proposed Procedures p Laparoscopic Cholecystectomy - Kendell Hodgson MD Height/Weight Height: 5 ft 7 in Weight: 136 kg Allergies Allergy/AdvReac Type Severity Reaction Status Date / Time No Known Allergies Allergy Unverified 05/27/20 10:41 Medications Home Medications Medication Instructions Recorded Confirmed Last Taken levonorgestrel-ethinyl estrad 1 tab PO HS 05/27/20 05/27/20 05/26/20 [[place] 28] Past Medical History Medical History No significant past medical history Exercise / Class Metabolic Activity II 4-5 Yardwork/Stairs/Walk up hill Past Family History Family History Mother Stroke Past Surgical History Surgical History History of adenoidectomy History of section Hx of tonsillectomy Status post right breast lumpectomy Past Anesthesia History No Hx of Anesthesia Complications and No Family Hx of Anesthesia Complications History of PONV No Hx of PONV and No Hx of Motion Sickness Social History Smoking Status: Never smoker Do You Dip or Chew Tobacco: No Hx Alcohol Use: No Hx Substance Use: No Physical Exam Vital Signs Last Vital Signs Temp 37 C 05/27/20 09:27 Pulse 102 H 05/27/20 21:07 Resp 18 05/27/20 21:07 BP 130/99 05/27/20 21:07 Pulse Ox 99 05/27/20 21:07 Testing Laboratory Results 05/27/20 10:01 05/27/20 10:01 Urine Color Dark Yellow 05/27/20 09:47 Urine Appearance Cloudy (Clear) A 05/27/20 09:47 Urine pH 5.0 (4.5-7.5) 05/27/20 09:47 Ur Specific [place] 1.022 (1.000-1.030) 05/27/20 09:47 Urine Protein 1+ (Negative) H 05/27/20 09:47 Urine Glucose (UA) Negative (Negative) 05/27/20 09:47 Urine Ketones Trace (Negative) H 05/27/20 09:47 Urine Nitrite Negative (Negative) 05/27/20 09:47 Ur Leukocyte Esterase 2+ (Negative) H 05/27/20 09:47 Urine WBC (Auto) 10-30 /hpf (0-5) H 05/27/20 09:47 Urine RBC (Auto) >30 /hpf (0-4) H 05/27/20 09:47 U Hyaline Cast (Auto) 1-5 /lpf (0-5) 05/27/20 09:47 U Epithel Cells (Auto) >30 /lpf (0-5) H 05/27/20 09:47 Urine Bacteria (Auto) Negative (Negative) 05/27/20 09:47 Urine Test Negative (Negative) 05/27/20 09:47 05/27/20 09:47 Urine Test Negative
[2020-05-27] MEDS ORDERED: fentaNYL citrate 100 MCG/2 ML VIAL ONE ×2 (21:36→23:11)
[2020-05-27] MEDS ORDERED: MIDAZOLAM HCL 1 MG/ML 2ML VIAL ONE (21:36)
[2020-05-27] MEDS ORDERED: ROCURONIUM BROMIDE 10 MG/ML 5 ML VIAL IV ONE (22:12)
[2020-05-27] MEDS ORDERED: SUCCINYLCHOLINE 100MG/5ML SYR IV ONE (22:12)
[2020-05-27] MEDS ORDERED: PROPOFOL IV EMULSION 10 MG/ML 20 ML VIAL IV ONE (22:12)
[2020-05-27] MEDS ORDERED: GLYCOPYRROLATE 0.2 MG/ML VIAL ONE (22:12)
[2020-05-27] MEDS ORDERED: ONDANSETRON INJ 2 MG/ML 2 ML VIAL ONE (22:12)
[2020-05-27] MEDS ORDERED: DEXAMETHASONE SOD INJ 4 MG/ML VIAL ONE (22:12)
[2020-05-27] MEDS ORDERED: NEOSTIGMINE METHYLSULFATE 5 MG/5 ML SYR ONE (22:12)
[2020-05-28] MEDS ORDERED: fentaNYL citrate 100 MCG/2 ML VIAL ONE (00:31)
[2020-05-28] MEDS ORDERED: cefOXitin 2,000 MG in DEXTROSE 5% 50 ML IV ONE (00:33)
[2020-05-28] MEDS ORDERED: FLOSEAL HEMOSTATIC MATRIX 10ML TOP ONE (00:47)
[2020-05-28] MEDS ORDERED: HEPARIN SODIUM (PORCINE) 5,000 UNITS in SYRINGE 0 ML IV ONE (00:51)
[2020-05-28] MEDS ORDERED: BUPIVACAINE 0.5 % 5 MG/1 ML MPF 30ML VIAL INJ ONE (00:58)
--- NOTE | 2020-05-28 01:06 | Post Operative Brief Note ---
Immediate Post Op Note v1 Date of Surgery May 28, 2020 Pre & Post Diagnosis Operation Date: 05/27/20 13:40 Pre-Op Diagnosis: Acute cholecystitis Post-Op Diagnosis: Acute cholecystitis I identified the patient and participated in the time-out.: Yes Procedure Operation Date: 05/27/20 13:40 <No data on this case meets the specified criteria> Surgeon Kendell Hodgson MD Dye Expert none Estimated Blood Loss 30 Findings Consistent with Post-Op Diagnosis Drains Abhijit-Salgado Drain (10mm flat JANET)
--- NOTE | 2020-05-28 02:06 | Anesthesiology Progress Note ---
Date of Service May 28, 2020 Anesthesia Post Procedure Vital Signs Vital Signs: Temp Pulse Pulse Resp BP BP Pulse Ox 05/28/20 01:57 87 12 118/75 95 05/28/20 01:47 81 18 113/78 97 05/28/20 01:37 84 20 117/80 97 05/28/20 01:27 36.4 C L 67 12 118/78 98 05/27/20 21:07 102 H 18 130/99 99 05/27/20 20:20 106 H 18 152/109 H 97 05/27/20 18:40 108 H 17 139/107 H 96 05/27/20 17:57 104 H 18 147/110 H 98 05/27/20 16:26 108 H 24 143/104 H 99 05/27/20 14:40 108 H 18 155/103 H 99 05/27/20 13:00 114 H 17 150/116 H 98 05/27/20 11:42 105 H 18 149/109 H 99 05/27/20 11:10 119 H 18 181/137 H 96 05/27/20 10:02 119 H 119 H 16 152/107 H 99 05/27/20 09:27 37 C 111 H 18 174/129 H 98 Pain Intensity Right Upper Abdomen: Pain Intensity: 3 Transfer of Care Handoff Completed per policy Notes Mental Status: alert / awake / arousable and participated in evaluation Patient Amnestic to Procedure: Yes Nausea / Vomiting: adequately controlled Pain: adequately controlled Airway Patency, RR, SpO2: stable & adequate BP & HR: stable & adequate Hydration State: stable & adequate Anesthetic Complications: no major complications apparent and Pt Satisfied with anesthetic care
[2020-05-28] MEDS ORDERED: ONDANSETRON INJ 2 MG/ML 2 ML VIAL IV PRN (02:50)
[2020-05-28] MEDS ORDERED: MoRPHine SULFATE 4 MG/ML 1 ML CARP\\VIAL IV PRN (02:50)
[2020-05-28] MEDS ORDERED: POTASSIUM CHLORIDE 10 MEQ in SODIUM CHLORIDE 0.9% 1000ML 1,000 ML IV SCH (03:30)
[2020-05-28] MEDS: cefOXitin 2,000 MG in DEXTROSE 5% 50 ML IV SCH ×4 (04:01→22:18)
[2020-05-28] MEDS: oxyCODONE/ACETAMINOPHEN 5mg/325mg TAB PO PRN ×3 (05:16→23:36)
--- NOTE | 2020-05-28 08:00 | Operative Report (OR) ---
DATE OF OPERATION: 05/28/2020 PREOPERATIVE DIAGNOSIS: Acute cholecystitis. POSTOPERATIVE DIAGNOSIS: Acute cholecystitis. PROCEDURE: Laparoscopic cholecystectomy. SURGEON: Kendell Hodgson MD FINDINGS: The gallbladder was caked in 6 omental adhesions throughout its entire surface. The peritoneum was thickened. The connective tissue and lymphatics in the area of the cystic duct and cystic artery were quite thickened. The gallbladder was dilated and tense with a thick wall. There were multiple large stones within the lumen. The cystic duct was not dilated. The liver was of normal size and contour. The visible bowel appeared normal. TECHNIQUE: The patient was given a general anesthetic and the area was prepped and draped in the usual sterile fashion. The skin and subcutaneous tissue inferior to the umbilicus was anesthetized with 0.5% Marcaine. Skin incision was made and was carried down through the subcutaneous tissue. There was a vessel in the subcutaneous tissue that was disrupted and caused some bleeding and had to be identified, grasped, and cauterized. That then gave me access to the fascia. The fascia was grasped with 2 Jose clamps and incised between. The peritoneum was identified, incised and introducer was placed bluntly. The abdomen was then insufflated to a pressure of 15 mmHg with carbon dioxide. Sites for the upper midline, midclavicular, and anterior axillary introducers were chosen and the skin and subcutaneous tissue in those areas were anesthetized with the same local. Skin incisions were made and the introducers were placed under direct vision. The patient was placed in steep reverse Trendelenburg and airplane left position. I could not even initially identify the gallbladder. I placed downward traction on the adhesions. They were thick and quite densely adherent to the gallbladder and required dissection through the adhesions until I could identify the abdominal wall at the fundus. I then worked down along the gallbladder and then was able to see the gallbladder wall. I could not grasp it, so it was drained with the drainage needle also placed under direct vision. I then was able to place upward traction on the gallbladder and then had to dissect the thickened omental adhesions away from the wall of the gallbladder along its entire course. At times, it was difficult to identify adhesion versus gallbladder wall and required very careful meticulous dissection as I did not want to open the gallbladder at that point. There were adhesions to the liver on the undersurface of the right lobe and on the undersurface of the medial segment of the left lobe. Those adhesions had to be taken down very carefully as well, so as to not tear the capsule of the liver. I then worked inferiorly again along the gallbladder wall. When I got down to the infundibulum, there was a very large stone lodged there making it difficult to grasp and elevate the gallbladder. There were thickened fatty adhesions extending across from the edge of the attachment of the gallbladder to the liver on the lateral side to the medial side that had to be carefully taken down as I could not identify where the vessel might have been. Once I freed that, I was then able to grasp the gallbladder wall and elevate it. I then dissected down along the lateral aspect of the infundibulum and neck of the gallbladder. Those adhesions were quite thickened as well and required millimeter by millimeter meticulous dissection. I then worked medially and was able to identify the medial wall of the cystic duct. The thickened tissue over the infundibulum and neck of the gallbladder was then opened and peeled towards the common bile duct. There was a significant amount of fatty tissue within the triangle of Calot extending up along the medial wall of the gallbladder. I was able to isolate that tissue and up near the gallbladder I clipped the tissue in order to prevent any bleeding. I was able to peel that down and then identified the peritoneum of the triangle of Calot. That was opened and again quite thickened and not being able to initially identify the artery, the dissection was performed very carefully and meticulously over the anterior surface of the cystic duct and then down along the medial wall. There were a lot of thickened adhesions there that had to be taken down using careful cautery dissection. The cystic duct lymph node was identified and its attachments were divided with cautery, which allowed me better access into the triangle of Calot and allowed me better access to the medial wall of the cystic duct. I was then able to establish a plane behind the cystic duct and that required doing some more lateral dissection of the gallbladder away from the liver and then some medial dissection, but that was done very minimally as I could not identify where the artery was located. I dissected some of the infundibulum away from the liver posteriorly creating an adequate window and allowing me to confidently identify finally the cystic duct gallbladder junction. Two clips were placed on the proximal cystic duct, one near the gallbladder and it was divided. I was able to elevate that and dissect behind it. There were some thickened lymphatics that were isolated, clipped and divided. I then worked up along the lateral wall of the gallbladder, dissecting it away from the liver and then worked lateral to medial, which allowed me then to dissect behind the gallbladder lymph node and identify the cystic artery. It appeared as though the right hepatic was looping through and I was able to isolate the branch going directly to the gallbladder, clipped it, and divided it. There was still some thickening of the connective tissue and of the attachments of the liver over where the right hepatic appeared to be and I had to divide those very carefully so as to not open the artery, but that was able to be accomplished. I then had to dissect the gallbladder off the liver bed and that was again done millimeter by millimeter trying not to leave the back wall of the gallbladder on the liver bed. There was not a good plane of dissection due to the thickening and acute nature of the cholecystitis. I was able to finally dissect the gallbladder off the liver bed. The gallbladder was placed into an Endobag and brought out through the upper midline incision. I had to open the incision further as well as the layers including the rectus sheath in order to extract the gallbladder due to the size of the stones, which could not be crushed as they were calcified. I was eventually able to get the gallbladder out within the bag. I had to close some of the fascia there to prevent any leaking when the abdomen was reinsufflated. That introducer was then reinserted after the abdomen was insufflated. The liver edge was elevated. The subdiaphragmatic and subhepatic spaces were irrigated and the irrigation was removed and that was repeated until the return was clear. There was a small amount of oozing from the gallbladder bed of the liver, which was easily controlled with cautery. Further irrigation was performed and any clots that were there were removed. The gallbladder bed of the liver was filled with collagen forming material and a 10 mm flat Abhijit-Salgado was brought out through the anterior axillary introducer site placed in the subhepatic space. The drain was secured with a 3-0 nylon at the skin level. The gas was allowed to escape and the introducers were removed. The fascia of the umbilical introducer site was closed with 0 Vicryl. The remainder of the fascial opening in the upper midline introducer site was closed with 0 Vicryl. The skin of all the incisions was closed with 4-0 Monocryl in either an interrupted or running subcuticular fashion. The skin was further anesthetized. The skin was cleansed, dried, benzoin placed, and Steri-Strips applied. The estimated blood loss was 30 mL. Sponge, needle and instrument counts were correct prior to closure. The patient tolerated the surgical procedure without complication and was transferred to recovery. I attest to the content of the Intraoperative Record and any orders documented therein. Any exception s are noted below.
[2020-05-28] MEDS ORDERED: ACETAMINOPHEN 325 MG TAB PO PRN (13:14)
--- NOTE | 2020-05-28 13:19 | Surgery Progress Note ---
Date of Service May 28, 2020 Assessment & Plan (1) Acute cholecystitis: POD # 0 s/p laparoscopic cholecystectomy -afebrile, vss - postop pain controlled - philip drain with bloody output Plan: Tylenol po prn mild pain, PO Percocet prn moderate/severe pain, breakthrough IV Morphine Continue IV Cefoxitin Continue IV Zofran prn nausea Discontinue IV fluids continue philip drain to bulb suction ambulate incentive scds likely home tomorrow Dr. Hodgson has seen and examined pt, agrees with above. Admission and Anticipated Discharge Date Admission Date: May 28, 2020 Subjective feeling better today preop pain resolved postop pain controlled no nausea or vomiting eating regular diet for lunch, appetite was low this am urinating without difficulty Physical Exam Constitutional: WD/WN, vitals as above Respiratory: normal respiratory effort; no respiratory distress and no labored breathing Gastrointestinal (Abdomen): Inspection/Auscultation: abdomen normal to inspection and + abdominal surgical drain present (philip with bloody output); abdomen not distended Skin: no rashes, warm and dry Psychiatric: A+Ox3, euthymic affect Results & Data ([facility]) Vital Signs (Past 12 Hours) Vital Signs Temp Pulse Pulse Resp BP Pulse Ox 05/28/20 07:31 36.8 C 87 16 143/96 H 94 05/28/20 04:40 36.6 C 79 18 144/95 H 97 05/28/20 03:40 36.5 C 94 H 16 136/90 97 05/28/20 03:12 36.5 C 87 18 124/83 94 05/28/20 03:11 36.6 C 83 20 129/87 95 05/28/20 02:40 36.6 C 82 16 129/87 94 05/28/20 02:17 36.6 C 86 14 116/74 94 05/28/20 02:07 77 14 114/71 94 05/28/20 01:57 87 12 118/75 95 05/28/20 01:47 81 18 113/78 97 05/28/20 01:37 84 20 117/80 97 05/28/20 01:27 36.4 C L 67 12 118/78 98
[2020-05-29] MEDS: cefOXitin 2,000 MG in DEXTROSE 5% 50 ML IV SCH ×2 (04:59→09:43)
--- NOTE | 2020-05-29 08:24 | Surgery Progress Note ---
Date of Service May 29, 2020 Assessment & Plan (1) Acute cholecystitis: POD # 1 s/p laparoscopic cholecystectomy - afebrile, vss - postop pain controlled - philip drain with serosanguineous output Plan: Encouraged ambulating hallway to help dissipate intra-abdominal gas and help with pain continue Tylenol po prn mild pain, PO Percocet prn moderate/severe pain, breakthrough IV Morphine Continue IV Zofran prn nausea discontinue philip drain discharge instructions reviewed rx for Percocet sent to pharmacy follow-up in 2 weeks (2) Morbid obesity: BMI of 60.7 Dr. Hodgson has seen and examined pt, agrees with above. Admission and Anticipated Discharge Date Admission Date: May 28, 2020 Subjective feeling better today but having gas pains has not ambulated hallway no bowel movement, passing gas urinating without difficulty pain controlled with oral Percocet tolerating diet has not used incentive spirometer Physical Exam Constitutional: WD/WN, vitals as above + morbidly obese Respiratory: normal respiratory effort; no respiratory distress and no labored breathing Gastrointestinal (Abdomen): Inspection/Auscultation: abdomen normal to ins pection and + abdominal surgical drain present (serosanguineous); abdomen not distended Percussion/Palpation: + abdomen tender (at incision sites and RUQ at drain site) and abdomen soft; no guarding and abdomen not rigid Skin: no rashes, warm and dry + incision (covered with dressings) Psychiatric: A+Ox3, euthymic affect Results & Data ([facility]) Vital Signs (Past 12 Hours) Vital Signs Temp Pulse Resp BP Pulse Ox 05/29/20 07:27 36.6 C 97 H 18 139/95 96 05/28/20 23:05 36.9 C 68 20 129/84 96
--- NOTE | 2020-05-29 11:33 | Discharge Summary ---
Date of Service May 29, 2020 Admission HPI Per Admitting Provider Lily is a 45-year-old female who presented to the emergency room this morning with complaint of left lower quadrant abdominal pain that started this morning suddenly. Described the pain as sharp and stabbing in the left lower quadrant with urinary urgency but was unable to urinate. She presented to the emergency room and was able to urinate and then the pain in the left lower quadrant subsided. She also stated that she has been having this right upper quadrant abdominal pain. Had an episode about 1 and half weeks ago after eating a burger in which she had sharp right upper abdominal pain with radiation to her back for a few hours and then resolved she had associated nausea but no vomiting. She then had another episode this past Tuesday after eating but was not as bad as the first episode. Some mild gnawing pain that has been persistent in the right upper quadrant. Denies of any fevers, chills, chest pain, shortness of breath, diarrhea, blood in stools, black tarry stools, jaundice, generalized itching, acholic stools. She was unaware that she had gallstones. She states her mother had gallstones and had her gallbladder removed around the same age. Denies of any history of blood clots or bleeding disorders. No blood thinning agents. ER work-up included labs which showed no leukocytosis. CMP with LFTs and total bilirubin within normal limits. CT scan of abdomen and pelvis without contrast showing distended gallbladder with a large two-point centimeter stone in the neck of the gallbladder with some mild gallbladder wall thickening and surrounding inflammation consistent with acute cholecystitis. Principal Diagnosis Acute calculous cholecystitis Discharge Data Allergies Allergy/AdvReac Type Severity Reaction Status Date / Time No Known Allergies Allergy Unverified 05/27/20 10:41 Consultations 05/27/20 15:00 Consult General Surgery Stat Procedures Performed Operation Date: 05/27/20 13:40 Actual Procedures p Laparoscopic Cholecystectomy - Kendell Hodgson MD Ordered Studies 05/27/20 09:49 CT abd pelvis wo con Stat Hospital Course (1) Acute cholecystitis: Patient was taken to operating room for laparoscopic cholecystectomy possible open by Dr. Hodgson. Patient was found to have significant cholecystitis with omentum adhered to gallbladder and liver. Procedure was completed laparoscopically and patient tolerated procedure without difficulty. A harlan drain was placed given some intra-operating bleeding and oozing. Patient was transferred to medical/surgical floor postop. IV Cefoxitin was continued postop, IV Fluids, IV Morphine with PO Percocet as needed for pain, regular diet, harlan drain to bulb suction were her postop ordered. POD # 0 , avss, pain moderate but controlled, harlan drain with bloody sanguineous output. Tolerated diet. Encouraged to ambulate and was kept overnight for observation given harlan drain. POD # 1 avss, pain better, more sore, controlled, tolerating regular diet. Harlan drain serosanguineous. Patient was doing well and discharged home on POD # 1. harlan drain was removed prior to discharge. (2) Morbid obesity: BMI of 60.7 Total Time Total Time Spent Total Time Spent (In Minutes): 30 Total Time Includes: Examination of the Patient, Discharge Planning and Medication Reconciliation Discharge Plan Discharge Items Patient Disposition: Home - Self-Care Reason For Visit: ACUTE CHOLECYSTITIS Discharge Diagnosis: Acute calculous cholecystitis Activity: Per Instructions section Non-emergency contact: Surgeon Call non-emergency contact if: you have any medication questions, your pain is worsening, your pain is concerning for you, you have a fever, your temperature i s above 101, your wound has increased redness, your wound has increased drainage and your wound pain has increased Follow-up/Referrals: Kendell Hodgson MD [Physician] - 06/12/20 10:45 am PCPJENS [Primary Care Provider] - Diet: Regular Addtl Attending Provider Instructions: Post-Surgical ~Discharge Instructions Activity Recommendations: - lifting limitation: (10 pounds for 2 weeks), - exercise/sex/sports limit: (nonstrenuous for 2 weeks), - driving or machine use limit: (none for 1 week), - Shower/bathe limit: (may shower) Diet: - Resume previous diet SPECIAL CARE INSTRUCTIONS: - May shower. Let water run over area and pat dry. - Leave steri strips on for one week and then remove. They may fall off on their own that is okay. - Replace small dressing over drain site daily or as needed. - Call the surgeon's office with any questions or concerns - - (ex. temperature higher than 101 degrees F, excessive bleeding or pain). MEDICATIONS: - Resume previous medications unless instructed otherwise by your surgeon. - You may take/alternate extra strength Tylenol and Ibuprofen as needed for mild pain. -650 mg Tylenol every 6 hours as needed - 600 mg Ibuprofen every 6 hours as needed (take with food) - Percocet 1 every 4 hours, as needed for moderate to severe pain FOLLOW UP VISIT: - If not already scheduled, please call the office to schedule a two week follow-up appointment. Office number Pending Studies at Discharge: Yes Stand-Alone Forms: My [facility] [employer], Smoking Cessation Medications and DC Order Prescriptions: New oxycodone-acetaminophen [Percocet] 5-325 mg tablet 1 tab PO Q4H PRN (Reason: pain) Qty: 5 RF: 0 Continued levonorgestrel-ethinyl estrad [Nany 28] 0.15-0.03 mg Tablet 1 tab PO HS RF: 0 Discharge Orders: Discharge Order (Routine); Ordered 05/29/20 Ordered By: Christina Nowak Admission Data Admit Date/Time: 05/28/20 02:50 Attending Provider: Kendell Hodgson Admit Provider: Kendell Hodgson Primary Care Provider: PCP,NO Other Providers: Kendell Hodgson
== END 2020-05-29 14:30 | disposition home or self-care (01) ==
LOC: ED 09:22 → OR 21:07 → INTOOBSV 05-28 01:06 → 3N 05-28 02:44 → 1E 05-28 04:54 → 3N 05-28 04:57